=== PATIENT | male | born 2000 | race Asian ===

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

== ENCOUNTER 2020-06-08 18:49 | Inpatient (IN) | payer BC, OTHER ==
[~2020-06-08] VITALS: Ht 175.3 cm; Wt 68.1 kg
[~2020-06-08 18:49] MED LIST: AMOX-117 PO
[2020-06-08] MEDS ORDERED: normal saline 1000ML IV soln IV ONE (19:05)
[2020-06-08] MEDS ORDERED: vancomycin/NS 1 GM ADD-VANTAGE 250 ML IV ONE (19:05)
[2020-06-08] MEDS ORDERED: CefTRIAXone 2gm/D5W 50ml BAG 50 ML IV ONE (19:05)
[2020-06-08 19:44] LABS: BASOPHILS % (AUTO) 0.5 % (0-1); EOSINOPHILS # (AUTO) 0.3 X10'3 (0-0.9); EOSINOPHILS % (AUTO) 5.6 % (0-6); HEMATOCRIT 32.4 % (42.0-52.0); HEMOGLOBIN 11.2 g/dl (14.0-17.9); LYMPHOCYTES # (AUTO) 1.1 X10'3 (1.1-4.8); LYMPHOCYTES % (AUTO) 24.3 % (21-51); MEAN CORPUSCULAR HGB CONC 34.6 g/dL (33.0-36.5); MEAN PLATELET VOLUME 7.2 FL (7.4-10.4); MONOCYTES # (AUTO) 0.4 X10'3 (0-0.9); MONOCYTES % (AUTO) 9.6 % (2-12); NEUTROPHILS # (AUTO) 2.7 X10'3 (1.8-7.7); PLATELET COUNT 339 X10'3 (140-440); RED BLOOD COUNT 3.86 X10'6 (4.70-6.10); RED CELL DISTRIBUTION WIDTH 12.5 % (11.5-14.5); WHITE BLOOD COUNT 4.5 X10'3 (4.5-11.0)
[2020-06-08 19:53] LABS: ALANINE AMINOTRANSFERASE 42 U/L (12-78); ALBUMIN 3.6 G/DL (3.4-5.0); ALBUMIN/GLOBULIN RATIO 0.9 (1.1-1.5); ALKALINE PHOSPHATASE 59 IU/L (46-116); ANION GAP 9 (8-16); ASPARTATE AMINO TRANSFERASE 53 U/L (10-37); BILIRUBIN,TOTAL 0.9 MG/DL (0.1-1.0); BLOOD UREA NITROGEN 12 MG/DL (7-18); BUN/CREATININE RATIO 11.8 (5.4-32.0); CALCIUM 9.6 MG/DL (8.5-10.1); CHLORIDE 104 MMOL/L (99-107); CREATININE 1.02 MG/DL (0.60-1.10); GLUCOSE 121 MG/DL (70-104); POTASSIUM 3.3 MMOL/L (3.5-5.1); SODIUM 140 MMOL/L (135-145); TOTAL PROTEIN 7.8 G/DL (6.4-8.2); eGFR > 90 ML/MIN
[2020-06-08] MEDS ORDERED: potassium Cl 20 mEq SR tablet PO ONE (19:55)
[2020-06-08] MEDS ORDERED: iohexol 300mg/ml 100ml inj. ONE (20:03)
[2020-06-08] MEDS ORDERED: normal saline 1000ml 1,000 ML IV ONE (21:50)
[2020-06-08] MEDS ORDERED: NO HOME MEDS (22:08)
[2020-06-08] MEDS ORDERED: piperacillin/tazo 3.375gm/50ml 50 ML IV ONE (23:30)
[2020-06-08] MEDS ORDERED: morphine 2 MG/ML inj. syringe IV PRN ×2 (23:35)
[2020-06-08] MEDS ORDERED: mag hydrox/Alum hydrox/simeth 30ml oral suspension PO PRN (23:35)
[2020-06-08] MEDS ORDERED: magnesium hydroxide 30ml (MOM) UD suspension PO PRN (23:35)
[2020-06-08] MEDS ORDERED: acetaminophen 325mg tablet PO PRN (23:35)
[2020-06-08] MEDS ORDERED: potassium Cl 20 mEq SR tablet PO PRN ×2 (23:35)
[2020-06-08] MEDS ORDERED: potassium Cl 40MEQ/1/2NS 520ml 520 ML IV PRN ×2 (23:35)
[2020-06-08] MEDS ORDERED: ondansetron/PF 4mg/2ml inj IV PRN (23:35)
[2020-06-09 01:00] VITALS: BP 135/61
[2020-06-09] MEDS: piperacillin/tazo 3.375gm/50ml 50 ML IV SCH ×4 (01:00→17:48)
[2020-06-09] MEDS: normal saline 1000ml 1,000 ML IV SCH ×2 (02:07→14:14)
[2020-06-09 06:00] VITALS: BP 109/63
[2020-06-09 07:04] LABS: BASOPHILS % (AUTO) 0.5 % (0-1); EOSINOPHILS # (AUTO) 0.2 X10'3 (0-0.9); EOSINOPHILS % (AUTO) 5.1 % (0-6); HEMOGLOBIN 10.2 g/dl (14.0-17.9); LYMPHOCYTES # (AUTO) 1.3 X10'3 (1.1-4.8); MEAN CORPUSCULAR HGB CONC 33.8 g/dL (33.0-36.5); MEAN CORPUSCULAR VOLUME 85.7 FL (78-98); MONOCYTES # (AUTO) 0.5 X10'3 (0-0.9); MONOCYTES % (AUTO) 11.1 % (2-12); NEUTROPHILS # (AUTO) 2.3 X10'3 (1.8-7.7); NEUTROPHILS % (AUTO) 52.3 % (42-75); PLATELET COUNT 296 X10'3 (140-440); RED CELL DISTRIBUTION WIDTH 12.6 % (11.5-14.5); WHITE BLOOD COUNT 4.3 X10'3 (4.5-11.0)
[2020-06-09 07:34] LABS: ALANINE AMINOTRANSFERASE 39 U/L (12-78); ALBUMIN/GLOBULIN RATIO 0.8 (1.1-1.5); ALKALINE PHOSPHATASE 49 IU/L (46-116); ANION GAP 8 (8-16); ASPARTATE AMINO TRANSFERASE 49 U/L (10-37); BILIRUBIN,TOTAL 0.8 MG/DL (0.1-1.0); BLOOD UREA NITROGEN 6 MG/DL (7-18); BUN/CREATININE RATIO 7.1 (5.4-32.0); CALCIUM 8.8 MG/DL (8.5-10.1); CHLORIDE 106 MMOL/L (99-107); CREATININE 0.84 MG/DL (0.60-1.10); GLUCOSE 88 MG/DL (70-104); POTASSIUM 3.7 MMOL/L (3.5-5.1); SODIUM 140 MMOL/L (135-145); TOTAL CARBON DIOXIDE 25.7 MMOL/L (24-32); TOTAL PROTEIN 6.7 G/DL (6.4-8.2); eGFR > 90 ML/MIN
--- NOTE | 2020-06-09 07:49 | NUR ---
Patient in room ORTHO 4011. I have received report from Balbina WHITNEY and had the opportunity to ask questions and assume patient care.
[2020-06-09] MEDS ORDERED: VANCOmycin 1250MG/NS 250ml Bag 250 ML IV SCH (08:00)
[2020-06-09] MEDS: K and/or MAG REPLACEMENT MC SCH ×2 (08:06→20:50)
[2020-06-09 10:00] VITALS: BP 131/67
--- NOTE | 2020-06-09 11:00 | NUR ---
Dr Avery rounded and stated we could take out sutures from Left leg. Dr Avery stated to wait til wound care rounds on patient. Addendum: 06/09/20 at 1106 by Hemalatha Frederick RN Neida seay. Okay to DC sutures.
[2020-06-09] MEDS ORDERED: GADOTERATE MEGLUMINE 7.5 MMOL/15 ML VIAL IV ONE (14:16)
[2020-06-09] MEDS: vancomycin/NS 1 GM ADD-VANTAGE 250 ML IV SCH (15:36)
[2020-06-09 18:00] VITALS: BP 105/57
--- NOTE | 2020-06-09 18:26 | NUR ---
Problems reprioritized. Patient report given, questions answered & plan of care reviewed with Nava WHITNEY.
[2020-06-09 22:00] VITALS: BP 106/61
[2020-06-10] VITALS (18 sets, daily range): BP systolic 97–133; BP diastolic 47–79
[2020-06-10] MEDS: vancomycin/NS 1 GM ADD-VANTAGE 250 ML IV SCH ×3 (00:07→16:00)
[2020-06-10] MEDS: normal saline 1000ml 1,000 ML IV SCH ×3 (00:08→20:57)
--- NOTE | 2020-06-10 06:08 | NUR ---
Report given to Shraddha WHITNEY.
--- NOTE | 2020-06-10 06:12 | NUR ---
Patient in room ORTHO 4011B. I have received report from DEVONTE ACEVES and had the opportunity to ask questions and assume patient care.
[2020-06-10 07:32] LABS: BASOPHILS % (AUTO) 0.5 % (0-1); EOSINOPHILS # (AUTO) 0.2 X10'3 (0-0.9); EOSINOPHILS % (AUTO) 4.4 % (0-6); HEMATOCRIT 28.8 % (42.0-52.0); HEMOGLOBIN 9.8 g/dl (14.0-17.9); LYMPHOCYTES # (AUTO) 1.4 X10'3 (1.1-4.8); MEAN CORPUSCULAR HEMOGLOBIN 29.3 PG (27.0-31.0); MEAN CORPUSCULAR HGB CONC 34.2 g/dL (33.0-36.5); MEAN CORPUSCULAR VOLUME 85.5 FL (78-98); MEAN PLATELET VOLUME 7.1 FL (7.4-10.4); MONOCYTES # (AUTO) 0.5 X10'3 (0-0.9); MONOCYTES % (AUTO) 9.9 % (2-12); NEUTROPHILS # (AUTO) 2.6 X10'3 (1.8-7.7); NEUTROPHILS % (AUTO) 55.2 % (42-75); PLATELET COUNT 326 X10'3 (140-440); RED BLOOD COUNT 3.37 X10'6 (4.70-6.10); RED CELL DISTRIBUTION WIDTH 12.7 % (11.5-14.5); WHITE BLOOD COUNT 4.8 X10'3 (4.5-11.0)
[2020-06-10 07:51] LABS: ALANINE AMINOTRANSFERASE 40 U/L (12-78); ALBUMIN 2.9 G/DL (3.4-5.0); ALBUMIN/GLOBULIN RATIO 0.8 (1.1-1.5); ALKALINE PHOSPHATASE 44 IU/L (46-116); ANION GAP 7 (8-16); ASPARTATE AMINO TRANSFERASE 36 U/L (10-37); BILIRUBIN,TOTAL 0.9 MG/DL (0.1-1.0); BLOOD UREA NITROGEN 9 MG/DL (7-18); BUN/CREATININE RATIO 10.5 (5.4-32.0); CALCIUM 8.8 MG/DL (8.5-10.1); CHLORIDE 107 MMOL/L (99-107); CREATININE 0.86 MG/DL (0.60-1.10); GLUCOSE 85 MG/DL (70-104); POTASSIUM 3.6 MMOL/L (3.5-5.1); SODIUM 140 MMOL/L (135-145); TOTAL CARBON DIOXIDE 26.3 MMOL/L (24-32); TOTAL PROTEIN 6.5 G/DL (6.4-8.2); eGFR > 90 ML/MIN
[2020-06-10] MEDS: K and/or MAG REPLACEMENT MC SCH ×2 (07:55→19:24)
[2020-06-10] MEDS: piperacillin/tazo 3.375gm/50ml 50 ML IV SCH ×2 (09:39→16:00)
[2020-06-10] MEDS ORDERED: famotidine/PF 10 mg/ml inj IV ONE (11:25)
[2020-06-10] MEDS ORDERED: famotidine 10mg/ml inj IV SCH (15:00)
[2020-06-10] MEDS ORDERED: VANCOMYCIN LEVEL IV ONE (15:30)
--- NOTE | 2020-06-10 16:30 | NUR ---
Problems reprioritized. Patient report given, questions answered & plan of care reviewed with NURSE IN RECOVERY.
[2020-06-10] MEDS ORDERED: sevoflurane 250ml liquid IH ONE (16:34)
[2020-06-10] MEDS ORDERED: midazolam 1 mg/ML 2ml injection ONE (16:37)
[2020-06-10] MEDS ORDERED: fentaNYL/PF 50MCG/1 ML 2ML syringe ONE ×2 (16:37→16:56)
[2020-06-10] MEDS ORDERED: LIDOcaine 2% (20mg/ml) 5ml vial ONE (16:57)
[2020-06-10] MEDS ORDERED: propofol inj 20 ML IV ONE (16:57)
[2020-06-10] MEDS ORDERED: dexamethasone sod phosphate 4mg/ml inj. ONE (16:57)
[2020-06-10] MEDS ORDERED: bacitracin 15gm ointment TP ONE (17:05)
--- NOTE | 2020-06-10 17:20 | NUR ---
ADMITTED TO PACU FROM OR ACCOMPANIED BY ANESTHESIA. INTIAL PHYSICAL ASSESSMENT DONE AND RECORDED. REPORT RECEIVED FROM ANESTHESIA.
[2020-06-10] MEDS ORDERED: meperidine/PF 25mg/ml syringe ONE (17:21)
[2020-06-10] MEDS ORDERED: meperidine/PF 25mg/ml syringe IV PRN ×3 (17:30)
[2020-06-10] MEDS ORDERED: morphine 4 MG/ML inj SYRINge IV PRN (17:30)
[2020-06-10] MEDS ORDERED: morphine 2 MG/ML inj. syringe IV PRN (17:30)
[2020-06-10] MEDS ORDERED: ondansetron/PF 4mg/2ml inj IV PRN (17:30)
[2020-06-10] MEDS ORDERED: ringers solution, lacted 1,000 ML IV SCH (17:30)
[2020-06-10] MEDS ORDERED: proCHLORperazine 10 MG/2 ml inj IV PRN (17:30)
--- NOTE | 2020-06-10 17:30 | NUR ---
Patient in room ORTH[facility] 4011. I have received report from DEVONTE DYE IN RECOVERY and had the opportunity to ask questions and assume patient care.
--- NOTE | 2020-06-10 18:15 | NUR ---
PACU DISCHARGE CRITERIA MET, REPORT GIVEN TO FLOOR. DENIES PAIN OR DISCOMFORT, TRANSFERRED TO ROOM IN STABLE GOOD CONDITION.
[2020-06-10] MEDS: HYDROcodone/acetaminophen 5mg/325mg tablet PO PRN (18:47)
--- NOTE | 2020-06-10 18:54 | NUR ---
Problems reprioritized. Patient report given, questions answered & plan of care reviewed with DEVONTE ACEVES.
--- NOTE | 2020-06-10 18:59 | NUR ---
Problems reprioritized. Patient report given, questions answered & plan of care reviewed with DEVONTE ACEVES.
[2020-06-11] MEDS: vancomycin/NS 1 GM ADD-VANTAGE 250 ML IV SCH ×4 (00:03→23:46)
[2020-06-11] MEDS: piperacillin/tazo 3.375gm/50ml 50 ML IV SCH ×4 (01:51→17:45)
[2020-06-11 02:00] VITALS: BP 116/59
[2020-06-11 06:00] VITALS: BP 125/81
--- NOTE | 2020-06-11 06:23 | NUR ---
Report given to Naz WHITNEY.
--- NOTE | 2020-06-11 06:25 | NUR ---
Patient in room ORTHO 4011. I have received report from franny WHITNEY and had the opportunity to ask questions and assume patient care.
[2020-06-11 07:48] LABS: BASOPHILS % (AUTO) 0.1 % (0-1); EOSINOPHILS % (AUTO) 0.2 % (0-6); HEMATOCRIT 29.7 % (42.0-52.0); HEMOGLOBIN 10.2 g/dl (14.0-17.9); LYMPHOCYTES # (AUTO) 1.2 X10'3 (1.1-4.8); LYMPHOCYTES % (AUTO) 12.1 % (21-51); MEAN CORPUSCULAR HEMOGLOBIN 29.3 PG (27.0-31.0); MEAN CORPUSCULAR HGB CONC 34.2 g/dL (33.0-36.5); MEAN CORPUSCULAR VOLUME 85.6 FL (78-98); MEAN PLATELET VOLUME 6.8 FL (7.4-10.4); MONOCYTES # (AUTO) 0.8 X10'3 (0-0.9); MONOCYTES % (AUTO) 8.3 % (2-12); NEUTROPHILS # (AUTO) 7.8 X10'3 (1.8-7.7); NEUTROPHILS % (AUTO) 79.3 % (42-75); PLATELET COUNT 426 X10'3 (140-440); RED BLOOD COUNT 3.47 X10'6 (4.70-6.10); RED CELL DISTRIBUTION WIDTH 12.6 % (11.5-14.5); WHITE BLOOD COUNT 9.9 X10'3 (4.5-11.0)
[2020-06-11] MEDS: HYDROcodone/acetaminophen 5mg/325mg tablet PO PRN ×2 (07:58→15:36)
[2020-06-11] MEDS: K and/or MAG REPLACEMENT MC SCH ×2 (08:00→20:00)
[2020-06-11 08:12] LABS: ALANINE AMINOTRANSFERASE 38 U/L (12-78); ALBUMIN/GLOBULIN RATIO 0.8 (1.1-1.5); ALKALINE PHOSPHATASE 43 IU/L (46-116); ANION GAP 8 (8-16); ASPARTATE AMINO TRANSFERASE 30 U/L (10-37); BLOOD UREA NITROGEN 8 MG/DL (7-18); BUN/CREATININE RATIO 8.3 (5.4-32.0); CALCIUM 8.9 MG/DL (8.5-10.1); CHLORIDE 104 MMOL/L (99-107); CREATININE 0.96 MG/DL (0.60-1.10); GLUCOSE 104 MG/DL (70-104); POTASSIUM 3.7 MMOL/L (3.5-5.1); SODIUM 139 MMOL/L (135-145); TOTAL CARBON DIOXIDE 27.1 MMOL/L (24-32); TOTAL PROTEIN 6.8 G/DL (6.4-8.2); eGFR > 90 ML/MIN
[2020-06-11 10:00] VITALS: BP 100/53
[2020-06-11] MEDS: sod chloride 0.9% 10ml flush syringe IV SCH ×2 (16:00→23:46)
[2020-06-11 18:00] VITALS: BP 121/76
--- NOTE | 2020-06-11 18:09 | NUR ---
Report received and discussed with Naz.
--- NOTE | 2020-06-11 18:25 | NUR ---
Problems reprioritized. Patient report given, questions answered & plan of care reviewed with Jerry WHITNEY - er keisha nurse.
[2020-06-11] MEDS: lactobacillus rhamnosus 10,000 MMU CELLS/CAPSULE PO SCH (20:56)
[2020-06-11 22:00] VITALS: BP 133/77
[2020-06-12] MEDS: piperacillin/tazo 3.375gm/50ml 50 ML IV SCH ×2 (01:42→10:57)
--- NOTE | 2020-06-12 06:18 | NUR ---
Report given to and disccused with Ally
[2020-06-12 06:40] VITALS: BP 121/57
--- NOTE | 2020-06-12 06:42 | NUR ---
Patient in room ORTH[facility] 4011. I have received report from [facility] and had the opportunity to ask questions and assume patient care.
[2020-06-12 07:38] LABS: BASOPHILS % (AUTO) 0.3 % (0-1); EOSINOPHILS # (AUTO) 0.2 X10'3 (0-0.9); EOSINOPHILS % (AUTO) 2.4 % (0-6); HEMOGLOBIN 9.6 g/dl (14.0-17.9); LYMPHOCYTES # (AUTO) 1.4 X10'3 (1.1-4.8); LYMPHOCYTES % (AUTO) 17.8 % (21-51); MEAN CORPUSCULAR HGB CONC 34.1 g/dL (33.0-36.5); MEAN PLATELET VOLUME 6.9 FL (7.4-10.4); MONOCYTES # (AUTO) 0.9 X10'3 (0-0.9); MONOCYTES % (AUTO) 10.8 % (2-12); NEUTROPHILS # (AUTO) 5.5 X10'3 (1.8-7.7); NEUTROPHILS % (AUTO) 68.7 % (42-75); PLATELET COUNT 419 X10'3 (140-440); RED CELL DISTRIBUTION WIDTH 12.8 % (11.5-14.5); WHITE BLOOD COUNT 8.1 X10'3 (4.5-11.0)
[2020-06-12 07:53] LABS: ALANINE AMINOTRANSFERASE 37 U/L (12-78); ALBUMIN/GLOBULIN RATIO 0.8 (1.1-1.5); ALKALINE PHOSPHATASE 41 IU/L (46-116); ANION GAP 11 (8-16); ASPARTATE AMINO TRANSFERASE 28 U/L (10-37); BILIRUBIN,TOTAL 0.8 MG/DL (0.1-1.0); BLOOD UREA NITROGEN 15 MG/DL (7-18); BUN/CREATININE RATIO 7.5 (5.4-32.0); CALCIUM 9.1 MG/DL (8.5-10.1); CHLORIDE 107 MMOL/L (99-107); GLUCOSE 94 MG/DL (70-104); POTASSIUM 3.7 MMOL/L (3.5-5.1); SODIUM 144 MMOL/L (135-145); TOTAL CARBON DIOXIDE 25.8 MMOL/L (24-32); TOTAL PROTEIN 6.8 G/DL (6.4-8.2); eGFR 42 ML/MIN
[2020-06-12] MEDS: K and/or MAG REPLACEMENT MC SCH ×2 (08:00→20:00)
[2020-06-12] MEDS: sod chloride 0.9% 10ml flush syringe IV SCH ×3 (08:00→23:01)
--- NOTE | 2020-06-12 08:24 | NUR ---
Spoke with pharmacy regarding 0800 vancomycin because the patients kidney function went from a creatinine of .96 to 2.00 and a GFR of 90 to 42. Pharmacy is going to order a vanco trough and advised to hold off on 0800 dose until the trough is back.
[2020-06-12] MEDS ORDERED: normal saline 1000ml 1,000 ML IV ONE (09:10)
--- NOTE | 2020-06-12 09:17 | NUR ---
Initial: Pt admit DX L Leg cellulitis from dog bite s/p I&D this admit w/ REJI to be removed today per EMR. PO 75-100% avg regular diet meeting needs. LBM 06/11. No nutrition concerns at this time. Will continue to monitor. Rec: 1. continue regular diet 2. bowel care per rx 3. scaled wt this admit Addendum: 06/12/20 at [address] Amended: Links added.
--- NOTE | 2020-06-12 09:17 | NUR ---
PAGER ID: [phone] MESSAGE: [id number] Cristian, AM labs showed creatinine of 2 and a gfr of 42 from normal values yesterday. Random vanco trough drawn and was critically high at 23.7. [id number] obie
[2020-06-12] MEDS: normal saline 1000ml 1,000 ML IV SCH ×2 (09:23→19:53)
--- NOTE | 2020-06-12 09:45 | NUR ---
PAGER ID: [phone] MESSAGE: [id number] Cristian, patient had an extensive I/D on 06/10 and is not ambulating much and unable to wear SCDs due to location of his surgical incision. Can we get heparin or lovenox? Thanks! Ally [phone]
[2020-06-12] MEDS ORDERED: VANCOMYCIN 750MG IV in NS 250 ML IV SCH (10:00)
[2020-06-12 10:03] VITALS: BP 118/47
[2020-06-12] MEDS: lactobacillus rhamnosus 10,000 MMU CELLS/CAPSULE PO SCH ×2 (10:57→19:51)
--- NOTE | 2020-06-12 16:02 | NUR ---
Changed dressing per WOC orders and removed REJI drain. REJI drain intact, patient tolerated well and is in no acute distress
[2020-06-12] MEDS: amox tr/potassium clavulanate 875/125mg TAB PO SCH (17:07)
[2020-06-12] MEDS: DOXYCYCLINE 100MG CAPSULE PO SCH (17:07)
[2020-06-12 18:00] VITALS: BP 117/53
--- NOTE | 2020-06-12 18:33 | NUR ---
Problems reprioritized. Patient report given, questions answered & plan of care reviewed with Jana.
--- NOTE | 2020-06-12 18:41 | NUR ---
Patient in room ORTHO 4011. I have received report from Ally WHITNEY and had the opportunity to ask questions and assume patient care.
[2020-06-12 22:00] VITALS: BP 144/91
[2020-06-13] MEDS: normal saline 1000ml 1,000 ML IV SCH ×2 (05:10→15:47)
[2020-06-13 06:33] VITALS: BP 110/71
[2020-06-13] MEDS: K and/or MAG REPLACEMENT MC SCH ×2 (08:00→20:00)
[2020-06-13] MEDS: amox tr/potassium clavulanate 875/125mg TAB PO SCH ×2 (08:18→17:29)
[2020-06-13] MEDS: lactobacillus rhamnosus 10,000 MMU CELLS/CAPSULE PO SCH ×2 (08:18→20:11)
[2020-06-13] MEDS: DOXYCYCLINE 100MG CAPSULE PO SCH ×2 (08:18→17:29)
[2020-06-13] MEDS: sod chloride 0.9% 10ml flush syringe IV SCH ×2 (08:19→16:05)
[2020-06-13 08:20] LABS: ALANINE AMINOTRANSFERASE 30 U/L (12-78); ALBUMIN 2.8 G/DL (3.4-5.0); ALBUMIN/GLOBULIN RATIO 0.8 (1.1-1.5); ALKALINE PHOSPHATASE 38 IU/L (46-116); ANION GAP 8 (8-16); ASPARTATE AMINO TRANSFERASE 20 U/L (10-37); BILIRUBIN,TOTAL 0.7 MG/DL (0.1-1.0); BLOOD UREA NITROGEN 13 MG/DL (7-18); BUN/CREATININE RATIO 7.1 (5.4-32.0); CHLORIDE 109 MMOL/L (99-107); CREATININE 1.82 MG/DL (0.60-1.10); GLUCOSE 92 MG/DL (70-104); POTASSIUM 3.8 MMOL/L (3.5-5.1); SODIUM 145 MMOL/L (135-145); TOTAL CARBON DIOXIDE 28.2 MMOL/L (24-32); TOTAL PROTEIN 6.5 G/DL (6.4-8.2); eGFR 47 ML/MIN
[2020-06-13 08:33] LABS: BASOPHILS % (AUTO) 0.3 % (0-1); EOSINOPHILS # (AUTO) 0.2 X10'3 (0-0.9); EOSINOPHILS % (AUTO) 3.6 % (0-6); HEMATOCRIT 26.9 % (42.0-52.0); HEMOGLOBIN 9.1 g/dl (14.0-17.9); LYMPHOCYTES # (AUTO) 1.4 X10'3 (1.1-4.8); LYMPHOCYTES % (AUTO) 20.8 % (21-51); MEAN CORPUSCULAR HEMOGLOBIN 29.2 PG (27.0-31.0); MEAN CORPUSCULAR HGB CONC 33.9 g/dL (33.0-36.5); MEAN CORPUSCULAR VOLUME 86.1 FL (78-98); MEAN PLATELET VOLUME 6.7 FL (7.4-10.4); MONOCYTES # (AUTO) 0.6 X10'3 (0-0.9); MONOCYTES % (AUTO) 8.9 % (2-12); NEUTROPHILS # (AUTO) 4.5 X10'3 (1.8-7.7); NEUTROPHILS % (AUTO) 66.4 % (42-75); PLATELET COUNT 420 X10'3 (140-440); RED BLOOD COUNT 3.13 X10'6 (4.70-6.10); RED CELL DISTRIBUTION WIDTH 12.8 % (11.5-14.5); WHITE BLOOD COUNT 6.8 X10'3 (4.5-11.0)
[2020-06-13] MEDS ORDERED: VANCOMYCIN LEVEL IV ONE (09:30)
[2020-06-13 10:04] VITALS: BP 104/67
--- NOTE | 2020-06-13 12:00 | NUR ---
In to round with Dr. Key, removed dressing and changed per woc orders. Minimal serosanguenous drainage noted on tyson wrap and to kerlex. Skin surrounding the surgical wound and drain site are warm, pink with no odor or signs of infection.
[2020-06-13 18:00] VITALS: BP 131/81
--- NOTE | 2020-06-13 18:17 | NUR ---
Problems reprioritized. Patient report given, questions answered & plan of care reviewed with
[2020-06-13 22:00] VITALS: BP 117/69
[2020-06-14] MEDS: normal saline 1000ml 1,000 ML IV SCH ×2 (01:10→11:20)
--- NOTE | 2020-06-14 06:13 | NUR ---
Patient in room ORTH[facility] 4011. I have received report from Contreras WHITNEY and had the opportunity to ask questions and assume patient care.
[2020-06-14 07:41] VITALS: BP 124/68
[2020-06-14] MEDS: amox tr/potassium clavulanate 875/125mg TAB PO SCH (07:58)
[2020-06-14] MEDS: DOXYCYCLINE 100MG CAPSULE PO SCH (07:58)
[2020-06-14] MEDS: lactobacillus rhamnosus 10,000 MMU CELLS/CAPSULE PO SCH (07:59)
[2020-06-14] MEDS: K and/or MAG REPLACEMENT MC SCH (08:00)
[2020-06-14] MEDS: sod chloride 0.9% 10ml flush syringe IV SCH ×2 (08:02)
[2020-06-14 08:41] LABS: BASOPHILS % (AUTO) 0.2 % (0-1); EOSINOPHILS # (AUTO) 0.3 X10'3 (0-0.9); EOSINOPHILS % (AUTO) 3.8 % (0-6); HEMATOCRIT 29.6 % (42.0-52.0); HEMOGLOBIN 10.1 g/dl (14.0-17.9); LYMPHOCYTES # (AUTO) 1.5 X10'3 (1.1-4.8); LYMPHOCYTES % (AUTO) 16.8 % (21-51); MEAN CORPUSCULAR HEMOGLOBIN 29.1 PG (27.0-31.0); MEAN CORPUSCULAR HGB CONC 34.1 g/dL (33.0-36.5); MEAN CORPUSCULAR VOLUME 85.1 FL (78-98); MEAN PLATELET VOLUME 6.6 FL (7.4-10.4); MONOCYTES # (AUTO) 0.7 X10'3 (0-0.9); MONOCYTES % (AUTO) 7.6 % (2-12); NEUTROPHILS # (AUTO) 6.5 X10'3 (1.8-7.7); NEUTROPHILS % (AUTO) 71.6 % (42-75); PLATELET COUNT 481 X10'3 (140-440); RED BLOOD COUNT 3.48 X10'6 (4.70-6.10); RED CELL DISTRIBUTION WIDTH 12.6 % (11.5-14.5)
[2020-06-14 08:55] LABS: ALANINE AMINOTRANSFERASE 38 U/L (12-78); ALBUMIN 3.1 G/DL (3.4-5.0); ALBUMIN/GLOBULIN RATIO 0.7 (1.1-1.5); ALKALINE PHOSPHATASE 46 IU/L (46-116); ANION GAP 9 (8-16); ASPARTATE AMINO TRANSFERASE 24 U/L (10-37); BLOOD UREA NITROGEN 15 MG/DL (7-18); BUN/CREATININE RATIO 9.1 (5.4-32.0); CALCIUM 9.3 MG/DL (8.5-10.1); CHLORIDE 106 MMOL/L (99-107); CREATININE 1.64 MG/DL (0.60-1.10); GLUCOSE 110 MG/DL (70-104); POTASSIUM 3.7 MMOL/L (3.5-5.1); SODIUM 141 MMOL/L (135-145); TOTAL CARBON DIOXIDE 25.8 MMOL/L (24-32); TOTAL PROTEIN 7.3 G/DL (6.4-8.2); eGFR 53 ML/MIN
[2020-06-14 11:24] VITALS: BP 113/56
[2020-06-14] MEDS ORDERED: DOXY-224 PO (12:27)
[2020-06-14] MEDS ORDERED: AMOX-580 PO (12:27)
--- NOTE | 2020-06-14 13:28 | NUR ---
Went over DC instructions with patient and did dressing change. Educated on how to do dressing change since he will need to be doing them daily at home until he gets into out patient wound care. Dressing supplies were given to the patient as well as the number for admitting to schedule his appointment with wound care.
--- NOTE | 2020-06-14 13:32 | NUR ---
patient left floor before dc wound pictures could be taken
== END 2020-06-14 13:40 | disposition home or self-care (01) | DRG 602 ==
LOC: ER 18:50 → ED HOLD 23:33 → ORTHO 4S 06-09 01:00
PROVIDERS: ADMIT Internal Medicine; ATTEND Family Medicine
PROC: B42G1ZZ Computerized Tomography (CT Scan) of Left Lower Extremity Arteries using Low Osmolar Contrast (ICD-10-PCS; 2020-06-08)
PROC: 0J9N00Z Drainage of Right Lower Leg Subcutaneous Tissue and Fascia with Drainage Device, Open Approach (ICD-10-PCS; principal; 2020-06-11)
DX: L03.116 Cellulitis of left lower limb (principal); N17.0 Acute kidney failure with tubular necrosis; U07.1 COVID-19; Z87.891 Personal history of nicotine dependence; F12.90 Cannabis use, unspecified, uncomplicated; L02.416 Cutaneous abscess of left lower limb; S81.852A Open bite, left lower leg, initial encounter; W54.0XXA Bitten by dog, initial encounter; Y93.89 Activity, other specified; Y92.89 Other specified places as the place of occurrence of the external cause; Y99.8 Other external cause status
CPT/HCPCS: 96365; 99285; Z7506; 36415; 71045; 73701; 73720; 80053; 80202; 82948; 83605; 84145; 85025; 87040; 87070; 87081; 87426; A4618; A6258; A6446; A6449; A7000; A9575; G0378; J0696; J1100; J2001; J2175; J2250; J2543; J2704; J3010; J3370; J3490; J7030; J7050; Q9967

== ENCOUNTER 2020-07-06 14:30 | Emergency (ER) | payer BC, MEDICAID, OTHER ==
[~2020-07-06] VITALS: Ht 172.7 cm; Wt 75.0 kg
[~2020-07-06 14:30] MED LIST changes: -AMOX-117 PO; +AMOX-580 PO; +DOXY-224 PO
[2020-07-06 14:41] VITALS: BP 124/75
== END 2020-07-06 15:02 | disposition home or self-care (01) ==
LOC: ER 14:31
DX: S81.812D Laceration without foreign body, left lower leg, subsequent encounter (principal); F12.90 Cannabis use, unspecified, uncomplicated; Z79.2 Long term (current) use of antibiotics; Z79.899 Other long term (current) drug therapy; Z72.89 Other problems related to lifestyle; W54.0XXD Bitten by dog, subsequent encounter
CPT/HCPCS: 99281